=== PATIENT | female | born 1960 | race Caucasian/White ===

== ENCOUNTER → 2017-07-22 | Outpatient (CLI) | payer BC | LOC: RAD 09:55 | PROVIDERS: ATTEND Nurse Practitioner Family | DX: Z12.31 Encounter for screening mammogram for malignant neoplasm of breast (principal); N64.89 Other specified disorders of breast | CPT/HCPCS: 77067 ==

== ENCOUNTER → 2017-07-29 | Outpatient (CLI) | payer BC ==
--- NOTE | 2017-07-29 20:11 | Diagnostic Imaging Report ---
Left breast diagnostic mammogram. INDICATION: Focal asymmetry along the central far posterior aspect of the left breast. The current study was also evaluated with a Computer Aided Detection (CAD) system. Tomography is performed. FINDINGS: Focal compression views and true lateral views performed with the focal asymmetry along the far posterior aspect of the central region of the left breast demonstrating no definitive underlying mass and is favored to be summation artifact. IMPRESSION: Focal asymmetry along the central far posterior aspect of the left breast is favored to be summation artifact of parenchyma. Ultrasound evaluation pending. ACR BI-RADS Category 0: Incomplete. (Needs additional imaging evaluation). Result letter will be mailed to the patient. Note: At least 10% of breast cancer is not imaged by mammography. Dictated by: Dictated on workstation # [id number]
--- NOTE | 2017-07-29 20:27 | Diagnostic Imaging Report ---
Left breast ultrasound. INDICATION: Focal asymmetry along the central far posterior aspect of the left breast seen on mammography. FINDINGS: The four quadrants and retroareolar region of the left breast were scanned with no underlying abnormality seen to explain the focal asymmetry seen on mammography which could be summation effect of parenchyma. Incidentally in the left axilla there is a benign-appearing lymph node slightly enlarged measuring 2.4 CM in length, however, it demonstrates preserved fatty hilum and thin cortex. IMPRESSION: No definite abnormality to explain the focal asymmetry seen in the central far posterior aspect of the left breast. Six-month followup mammogram to ensure stability is recommended. ACR BI-RADS Category 3: Probably benign findings. Dictated by: Dictated on workstation # [id number]
== END ==
LOC: RAD 08:01
PROVIDERS: ATTEND Nurse Practitioner Family
DX: N64.89 Other specified disorders of breast (principal)
CPT/HCPCS: 76641

== ENCOUNTER 2017-10-02 11:17 | Outpatient (RCR) | payer BC | END 2017-10-24 14:50 | disposition home or self-care (01) | PROVIDERS: ATTEND Nurse Practitioner Family | DX: Z98.890 Other specified postprocedural states (principal) ==

== ENCOUNTER → 2018-02-19 | Outpatient (CLI) | payer BC ==
--- NOTE | 2018-02-19 10:14 | Diagnostic Imaging Report ---
Indication: A left breast density. Patient presents for a six-month followup. Correlation is made with prior exam from 07/29/2017. Findings: Unilateral left 2-D and 3-D diagnostic mammography was performed. The area of slight asymmetry in the far posterior left breast appears stable, most likely represents fibroglandular tissue. No mass is seen. No suspicious calcific lesions are identified. Scattered fibroglandular densities in left breast. Impression: BI-RADS 2 Stable left mammogram. The patient may return to routine annual screening mammography. ACR BI-RADS Category 2: Benign findings. Result letter will be mailed to the patient. Note: At least 10% of breast cancer is not imaged by mammography. Dictated by: Dictated on workstation # [id number]
== END ==
LOC: RAD 09:19
PROVIDERS: ATTEND Nurse Practitioner Family
DX: R92.2 Inconclusive mammogram (principal)

== ENCOUNTER → 2019-05-31 | Outpatient (CLI) | payer BC ==
[2019-05-31 16:58] LABS: ABSOLUTE RETIC # 55 10e9/L (24-90); BASOPHILS % (AUTO) 0 % (0-10); EOSINOPHILS # (AUTO) 0.1 10^3/uL (0.0-0.3); EOSINOPHILS % (AUTO) 1 % (0-10); HEMATOCRIT 41 % (35-52); HEMOGLOBIN 13.7 G/DL (11.5-16.0); LYMPHOCYTES # (AUTO) 2.5 X 10^3 (1.0-4.0); LYMPHOCYTES % (AUTO) 37 % (12-44); MEAN CORPUSCULAR HEMOGLOBIN 32 PG (25-34); MEAN CORPUSCULAR HGB CONC 34 G/DL (32-36); MEAN CORPUSCULAR VOLUME 95 FL (80-99); MEAN PLATELET VOLUME 10.4 FL (7.4-10.4); MONOCYTES # (AUTO) 0.6 X 10^3 (0.0-1.0); MONOCYTES % (AUTO) 9 % (0-12); NEUTROPHILS # (AUTO) 3.6 X 10^3 (1.8-7.8); NEUTROPHILS % (AUTO) 53 % (42-75); PLATELET COUNT 176 10^3/uL (130-400); RED CELL DISTRIBUTION WIDTH 11.9 % (10.0-14.5); RETICULOCYTE % 1.28 % (0.50-2.40); WHITE BLOOD COUNT 6.7 10^3/uL (4.3-11.0)
[2019-05-31 17:18] LABS: ALKALINE PHOSPHATASE 84 U/L (40-136); BAND NEUTROPHILS 0 %; BASOPHILS % (MANUAL) 0 %; BILIRUBIN,TOTAL 0.5 MG/DL (0.1-1.0); BUN/CREATININE RATIO 20; CALCIUM 9.8 MG/DL (8.5-10.1); CARBON DIOXIDE 21 MMOL/L (21-32); CHLORIDE 104 MMOL/L (98-107); CREATININE SERUM 0.85 MG/DL (0.60-1.30); EOSINOPHILS % (MANUAL) 0 %; GFR ESTIMATED > 60; GLUCOSE 86 MG/DL (70-105); LYMPHOCYTES % (MANUAL) 34 %; MONOCYTES % (MANUAL) 8 %; NEUTROPHILS % (MANUAL) 56 %; POTASSIUM 3.7 MMOL/L (3.6-5.0); REACTIVE LYMPHOCYTES 2 %; SODIUM 140 MMOL/L (135-145)
[2019-05-31 17:19] LABS: ALANINE AMINOTRANSFERASE 17 U/L (0-55); ALBUMIN 4.8 GM/DL (3.2-4.5); RBC MORPH NORMAL; TOTAL PROTEIN 7.7 GM/DL (6.4-8.2)
== END ==
LOC: LAB 16:36
DX: R59.0 Localized enlarged lymph nodes (principal)
CPT/HCPCS: 36415; 80053; 84436; 84443; 85007; 85027; 85045

== ENCOUNTER → 2020-08-21 | Outpatient (CLI) | payer BC ==
--- NOTE | 2020-08-21 12:31 | Diagnostic Imaging Report ---
INDICATION: Routine screening. COMPARISON: 07/22/2017 and 09/28/2016. TECHNIQUE: 2D and 3D bilateral screening mammography was performed with CAD. FINDINGS: Scattered fibroglandular densities are identified bilaterally. The parenchymal pattern appears to be stable. No mass or malignant appearing microcalcifications are seen. The axillae are unremarkable. IMPRESSION: No mammographic features suspicious for malignancy are identified. ACR BI-RADS Category 1: Negative. Result letter will be mailed to the patient. Note: At least 10% of breast cancer is not imaged by mammography. Dictated by: Dictated on workstation # [id number]
== END ==
LOC: RAD 09:00
DX: Z12.31 Encounter for screening mammogram for malignant neoplasm of breast (principal)
CPT/HCPCS: 77063; 77067

== ENCOUNTER → 2021-11-29 | Outpatient (CLI) | payer BC ==
--- NOTE | 2021-11-30 09:34 | Diagnostic Imaging Report ---
INDICATION: Routine screening. COMPARISON is made with prior mammograms 08/21/2020 and 07/22/2017. 2-D and 3-D bilateral screening mammography was performed with CAD. Both breasts are heterogeneously dense, limiting the sensitivity of mammography. The parenchymal pattern is stable. No mass or malignant-appearing microcalcifications are seen. Axillae are unremarkable. IMPRESSION: BI-RADS Category 1 No mammographic features suspicious for malignancy are identified. ACR BI-RADS Category 1: Negative. Result letter will be mailed to the patient. Note: At least 10% of breast cancer is not imaged by mammography. Dictated by: Dictated on workstation # [id number]
== END ==
LOC: RAD 15:00
DX: Z12.31 Encounter for screening mammogram for malignant neoplasm of breast (principal)
CPT/HCPCS: 77063; 77067